=== PATIENT | female | born 1980 | race Caucasian/White ===

== ENCOUNTER 2016-05-27 20:43 | Emergency (ER) | payer MEDICARE, OTHER ==
[2016-05-27 21:10] VITALS: BP 139/86; PULSE 91; TEMP 97.8; BMI 20.5
[2016-05-27 21:49] LABS: BASOPHIL 0.8 % (0-2.0); EOSINOPHIL 2.7 % (0-4.5); MCH 28.8 pg (25.7-33.7); MCHC 33.1 g/dl (32.0-36.0); MEAN CELL VOLUME 87.1 fl (80-96); MEAN PLT VOLUME 8.2 fl (7.5-11.1); NEUTROPHILS 65.9 % (42.8-82.8); PLATELET COUNT 244 K/MM3 (134-434); WHITE BLOOD COUNT 11.7 K/mm3 (4.0-10.0)
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
[2016-05-27 22:09] LABS: INR 1.01 (0.82-1.09)
[2016-05-27 22:11] LABS: ACTIVATED PTT 33.1 SECONDS (26.9-34.4); D-DIMER < 200 ng/ml (<200-235)
[2016-05-27 22:19] LABS: ALBUMIN 3.4 g/dl (3.4-5.0); ANION GAP 8 (8-16); BILIRUBIN,TOTAL 0.2 mg/dL (0.2-1.0); CALCIUM 8.5 mg/dL (8.5-10.1); CO2 24 mmol/L (21-32); CREATININE 0.7 mg/dL (0.55-1.02); GLUCOSE,RANDOM 57 mg/dL (74-106); SGOT/AST 14 U/L (15-37); SGPT/ALT 21 U/L (12-78); TOT PROT 7.5 g/dl (6.4-8.2)
[2016-05-27 22:21] LABS: ALK PHOS 107 U/L (45-117); TROPONIN I < 0.02 ng/ml (0.00-0.05)
[2016-05-28 00:27] LABS: TROPONIN I < 0.02 ng/ml (0.00-0.05)
--- NOTE | 2016-05-29 21:48 | EKG ---
Test Reason : Blood Pressure : / mmHG Vent. Rate : 090 BPM Atrial Rate : 090 BPM P-R Int : 134 ms QRS Dur : 088 ms QT Int : 360 ms P-R-T Axes : 066 068 046 degrees QTc Int : 440 ms NORMAL SINUS RHYTHM NORMAL ECG NO PREVIOUS ECGS AVAILABLE Confirmed by DAVON COOLEY MD ([id number]) on 05/29/2016 9:48:08 PM Referred By: Confirmed By:DAVON COOLEY MD
== END 2016-05-28 00:40 | disposition left against medical advice (07) ==
LOC: JER 20:43
DX: R07.89 Other chest pain (principal); Z86.73 Personal history of transient ischemic attack (TIA), and cerebral infarction without residual deficits
CPT/HCPCS: 36415; 71010-TC; 80053; 82550; 84484; 84703; 85025; 85379; 85610; 85730; 93005; 93010; 99283-25

== ENCOUNTER 2016-11-28 12:29 | Emergency (ER) | payer MEDICARE, OTHER ==
[2016-11-28 12:56] VITALS: BP 117/76; PULSE 76; TEMP 98.4; BMI 20.3
[2016-11-28 13:43] LABS: URINE APPEARANCE CLEAR; URINE BILIRUBIN NEGATIVE (NEGATIVE); URINE BLOOD NEGATIVE (NEGATIVE); URINE COLOR LTYELLOW; URINE GLUCOSE (UA) NEGATIVE (NEGATIVE); URINE KETONE NEGATIVE (NEGATIVE); URINE LEUK ESTERASE NEGATIVE (NEGATIVE); URINE NITRITE NEGATIVE (NEGATIVE); URINE PROTEIN NEGATIVE (NEGATIVE)
[2016-11-28] MEDS ORDERED: AZITHROMYCIN 1 GM PACKET PO ONE (13:47)
[2016-11-28] MEDS ORDERED: metroNIDAZOLE 250 MG TABLET PO ONE (14:00)
[2016-11-28] MEDS ORDERED: AZITHROMYCIN 1 GM PACKET ONE (14:07)
[2016-11-28] MEDS ORDERED: metroNIDAZOLE 250 MG TABLET ONE (14:07)
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
== END 2016-11-28 14:19 | disposition home or self-care (01) ==
LOC: JER 12:29
DX: N73.8 Other specified female pelvic inflammatory diseases (principal); M54.5 Low back pain; G89.29 Other chronic pain; Z86.73 Personal history of transient ischemic attack (TIA), and cerebral infarction without residual deficits
CPT/HCPCS: 36415; 81003; 84703; 87070; 87086; 87205; 87491; 87591; 99281-25